=== PATIENT | male | born 1960 | race Caucasian/White ===

== ENCOUNTER 2025-08-15 09:40 | Emergency (ER) | payer SELFPAY ==
[2025-08-15 09:41] VITALS: BP 121/60
[2025-08-15 09:58] VITALS: BMI 21.0
--- NOTE | 2025-08-15 10:00 | ED.GENMED ---
History of Present Illness
General
Chief Complaint: Musculo-Skeletal Complaint
Source: patient
Exam Limitations: none
Time Seen by Provider: 08/15/25 09:53
History of Present Illness
History of Present Illness:
64yo right hand dominant male presenting for evaluation of a left middle finger injury. 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 He was putting something in the freezer yesterday when he accidentally slammed a sliding door onto his distal left
middle finger. He has been having discomfort since then, particularly if he lifts something. He wanted to come to the ED to make sure everything is okay. No paresthesias. No other complaints.
Past History
Past History
ED Past Medical History: GERD
ED Past Surgical History: Cholecystectomy, Orthopedic and Other (Hernia repair)
Social History
Tobacco: Smoker
Alcohol: None
Drug: None
Personal:
Living: with family
Employment: Employed
Family History
Family History: Other
Phy Exam
General Physical Exam
General Presentation: well appearing and no apparent distress
General Skin: warm and dry
General Habitus: normal
General Mental: alert
ENT Exam
ENT Exam: normocephalic
Neurological Exam
Neurological Exam: alert
Bindu Coma Scale
Eye Opening: Spontaneous
Verbal Response: Oriented
Motor Response: Obeys Commands
GCS Total Score: 15
Musculoskeletal Exam
Musculoskeletal Exam: other (Small linear area of bruising underneath L middle fingernail. No significant subungual hematoma. Mild tenderness to distal fingertip. ROM of DIP and PIP joints intact. Sensation and cap refill intact at fingertip. 2+
radial pulse.)
Skin Exam
Skin Exam: normal color and warm/dry
Psychiatric Exam
Psychiatric Exam: normal mood/affect
Course
Orders/Labs/Results
Orders:
Orders
08/15/25 10:00
CR Finger(s)/thumb Min 2 Vw Lt Urgent
Comment:
Reason For Exam: Injury to distal middle finger
Vital Signs
Initial and Last Documented VS:
Initial Vital Signs
Temp Resp BP Pulse Ox
97.6 F 16 121/60 100
08/15/25 09:41 08/15/25 09:41 08/15/25 09:41 08/15/25 09:41
Last Documented Vital Signs
Temp Pulse Resp BP Pulse Ox
97.6 F 65 18 105/63 100
08/15/25 09:41 08/15/25 11:05 08/15/25 11:05 08/15/25 11:05 08/15/25 11:05
MDM/Problems Addressed
Differential Diagnosis Includes:
64yoM here with a L middle finger injury yesterday. Accidentally closed a sliding door onto his finger. Mild tenderness on exam. No deformity. ROM intact. Digital is neurovascularly intact. Differential diagnosis includes: soft tissue injury,
fracture, no significant subungual hematoma
X-rays of digit obtained which are negative for osseous abnormalities. Supportive care discussed. Patient discharged in stable condition.
*Pulse Oximetry
SaO2: 100
Oxygen Mode of Delivery: Room air
Patient hypoxic: no
*Critical Care Note
Total Time (30-74mins, 75-104mins- exclusive of procedures): Not Applicable
ED Attending Note
-
Portions of this chart may have been created with voice recognition software.� Occasional wrong word or��sound alike� substitutions may have occurred due to the inherent limitations of voice recognition software.
Discharge Plan
Departure
Patient Disposition: Home (Routine Discharge)
Date of Disposition: 08/15/25
Time of Disposition: 11:03
Patient with high blood pressure during this ER visit?: No
Discharge Problem:
Crushing injury of left middle finger
Instructions: Common Finger Injuries ED
Prescriptions:
No Action
ondansetron 4 MG tablet,disintegrating
4 mg PO TIDPRN PRN (Reason: nausea/vomiting) Qty: 10 0RF
omeprazole magnesium [Prilosec OTC] 20 MG tablet,delayed release (DR/EC)
20 mg PO DAILY Qty: 20 0RF
pantoprazole 40 MG tablet,delayed release (DR/EC)
40 mg PO DAILY Qty: 14 0RF
Referrals:
Junaid Meade MD [Family Provider, Internal Medicine]
Activity Restrictions/Additional Instructions:
X-rays today did not show any fractures.
Apply ice to affected area and take ibuprofen as needed for pain.
Interventions
Interventions:
*Risk Screen - Suicide Last Done: 08/15/25 09:41
*General Assessment Last Done: 08/15/25 09:59
*Neglect/Abuse Screening Last Done: 08/15/25 09:41
*ED- Fall Risk Assessment Last Done: 08/15/25 09:59
*ED COVID-19 Vaccine History Last Done: 08/15/25 09:59
*ED Influenza Vaccine History Last Done: 08/15/25 09:59
*Nursing Disposition Last Done: 08/15/25 11:05
ED-Musculoskeletal Assessment Last Done: 08/15/25 09:59
Discharge Date and Time
Discharge Date/Time: 08/15/25 11:21
Print Language: BELARUSIAN
[2025-08-15 11:05] VITALS: BP 105/63
== END 2025-08-15 11:21 | disposition home or self-care (01) ==
LOC: EMR 09:40
PROVIDERS: EMERGENCY PHYSICIAN Student in an Organized Health Care Education/Training Program; FAMILY PHYSICIAN Internal Medicine
DX: S67.193A Crushing injury of left middle finger, initial encounter (principal); W23.0XXA Caught, crushed, jammed, or pinched between moving objects, initial encounter; F17.200 Nicotine dependence, unspecified, uncomplicated
CPT/HCPCS: 99283; 73140